=== PATIENT | male | born 1990 | race African-American/Black ===

== ENCOUNTER 2023-07-04 05:13 | Emergency (ER) | payer BC, MEDICAID ==
[~2023-07-04] VITALS: Ht 185.4 cm; Wt 93.0 kg
[2023-07-04 05:21] VITALS: O2SAT 97
[2023-07-04] MEDS ORDERED: OCUFLX EACHEYE (06:44)
[2023-07-04] MEDS ORDERED: AMOX1TAB16 MT (06:44)
[2023-07-04 06:49] VITALS: BP 126/68; PULSE 78; RESP 18; TEMP 98.4
== END 2023-07-04 06:50 | disposition home or self-care (01) ==
LOC: ER 05:13
DX: H66.93 Otitis media, unspecified, bilateral (principal); H10.9 Unspecified conjunctivitis
CPT/HCPCS: 99283